=== PATIENT | female | born 1990 | race Caucasian/White ===

== ENCOUNTER 2016-08-04 17:36 | Inpatient (IN) | payer SELFPAY ==
[~2016-08-04] VITALS: Ht 162.6 cm; Wt 68.0 kg
[~2016-08-04 17:36] MED LIST: CITA10TA69 PO; IOHEXOL-300 100 ML BOTTLE ONE; NO MEDS; SODIUM CHLORIDE 0.9% 10ML VIAL ONE
[2016-08-04] MEDS ORDERED: MORPHINE SULFATE 4 MG/ML CPJ (NOT FOR IM USE) IV STA (18:44)
[2016-08-04] MEDS ORDERED: SODIUM CHLORIDE 0.9% 1,000 ML IV ONE (18:44)
[2016-08-04] MEDS ORDERED: ONDANSETRON HCL 4MG/2ML VIAL IV STA (18:44)
[2016-08-04 19:02] LABS: CHLORIDE 106 mEq/L (98-107)
[2016-08-04 19:03] LABS: INDEX HEMOLYSI 1 (1-3); INDEX ICTERIC 1 (1-4); INDEX LIPEMIC 1 (1-3)
[2016-08-04 19:06] LABS: INR 1.1; PARTIAL THROMBOPLASTIN TIME 24.8 sec (24.0-34.0); PROTHROMBIN TIME 11.3 sec
[2016-08-04 19:08] LABS: BASOPHILS % 0.5 % (0.0-2.0); EOSINOPHILS % 0.4 % (0.0-5.0); HEMATOCRIT. 38.4 % (36.0-48.0); HEMOGLOBIN. 12.9 g/dL (12.0-16.0); MEAN CORPUSCULAR HGB CONC 33.6 g/dL (31.0-37.0); MEAN CORPUSCULAR VOLUME 89.1 fL (81.0-99.0); MEAN PLATELET VOLUME 7.8 fl (7.4-10.4); MONOCYTES % 6.2 % (2.0-8.0); NEUTROPHILS % 62.9 % (40.0-76.0); PLATELET 260 x1000/uL (130-400); RED BLOOD CELL COUNT 4.31 mill/uL (4.2-5.4); WHITE BLOOD COUNT 10.9 x1000/uL (4.5-11.0)
[2016-08-04 19:10] LABS: ALANINE AMINOTRANSFERASE 35 IU/L (13-61); ALBUMIN 3.7 g/dL (3.4-5.0); ANION GAP 12; CALCIUM 9.1 mg/dL (8.5-10.1); CARBON DIOXIDE 25 mEq/L (21-32); LIPASE 240 IU/L (73-393); UREA NITROGEN BLOOD 13 mg/dL (7-21); eGFR > 60 mL/min (>60)
[2016-08-04 19:14] LABS: HCG SCREEN NEGATIVE
[2016-08-04 20:02] LABS: CLARITY URINE CLEAR (CLEAR); COLOR URINE YELLOW (YELLOW); GLUCOSE URINE NEGATIVE (NEGATIVE); KETONES URINE NEGATIVE (NEGATIVE); LEUKOCYTE ESTERASE URINE NEGATIVE (NEGATIVE); NITRITE URINE NEGATIVE (NEGATIVE); OCCULT BLOOD URINE 2+ (NEGATIVE); PH URINE 6.5 (4.5-8.0); PROTEIN URINE NEGATIVE (NEGATIVE); SPECIFIC GRAVITY URINE 1.008 (1.005-1.030); UROBILINOGEN URINE 0.2 E.U./dL (0.2-1.0)
[2016-08-04 20:36] LABS: SQUAMOUS EPITHELIAL CELL URINE FEW /lpf (RARE/1+)
[2016-08-04 20:37] LABS: RBC URINE 0-2 /hpf (0-2); WBC URINE 0-2 /hpf (0-2)
[2016-08-04 20:38] LABS: BACTERIA URINE 1+
[2016-08-04] MEDS ORDERED: MORPHINE SULFATE 4 MG/ML CPJ (NOT FOR IM USE) IV ONE (21:00)
[2016-08-04] MEDS ORDERED: DOXYCYCLINE 100 MG in DEXT 5% WATER 100 ML IV SCH (22:15)
[2016-08-04] MEDS ORDERED: CEFTRIAXONE SODIUM 250 MG/VIAL IM ONE (22:15)
[2016-08-04] MEDS ORDERED: GENTAMICIN 80MG PREMIX 100 ML IV ONE (22:15)
[2016-08-04] MEDS ORDERED: LIDOCAINE HCL 1% 20ML VIAL (Pyxis) INJ INFIL ONE (22:30)
[2016-08-04] MEDS ORDERED: GENTAMICIN SULFATE 80 MG in SODIUM CHLORIDE 0.9% 100 ML IV NR (22:36)
[2016-08-04] MEDS ORDERED: HYDROMORPHONE HCL/PF 2MG/ML CPJ IV ONE (23:00)
[2016-08-05 01:00] VITALS: BP 112/76
[2016-08-05] MEDS ORDERED: HYDROCODONE/ACETAMINOPHEN 5/325MG TABLET PO PRN (01:30)
[2016-08-05] MEDS ORDERED: ACETAMINOPHEN 325MG TABLET PO PRN (01:30)
[2016-08-05] MEDS: KETOROLAC 30MG/ML VIAL IV PRN ×2 (02:25→10:04)
[2016-08-05] MEDS: DEXT 5%/LACTATED RINGERS 1,000 ML IV SCH ×2 (02:48→10:06)
[2016-08-05 04:00] VITALS: BP 118/77
[2016-08-05 05:57] LABS: GLUCOSE URINE NEGATIVE (NEGATIVE); KETONES URINE 1+ (NEGATIVE); LEUKOCYTE ESTERASE URINE NEGATIVE (NEGATIVE); NITRITE URINE NEGATIVE (NEGATIVE); OCCULT BLOOD URINE TRACE (NEGATIVE); PROTEIN URINE NEGATIVE (NEGATIVE); SPECIFIC GRAVITY URINE 1.055 (1.005-1.030); UROBILINOGEN URINE 0.2 E.U./dL (0.2-1.0)
[2016-08-05 06:03] LABS: CLARITY URINE SL HAZY (CLEAR); COLOR URINE YELLOW (YELLOW)
[2016-08-05 06:44] LABS: BASOPHILS % 0.2 % (0.0-2.0); EOSINOPHILS % 0.1 % (0.0-5.0); HEMATOCRIT. 37.4 % (36.0-48.0); HEMOGLOBIN. 12.7 g/dL (12.0-16.0); LYMPHOCYTES % 17.9 % (20.0-50.0); MEAN CORPUSCULAR HEMOGLOBIN 30.8 pg (28.0-32.0); MEAN CORPUSCULAR VOLUME 90.5 fL (81.0-99.0); MONOCYTES % 4.1 % (2.0-8.0); NEUTROPHILS % 77.7 % (40.0-76.0); PLATELET 238 x1000/uL (130-400); RED BLOOD CELL COUNT 4.13 mill/uL (4.2-5.4); RED CELL DISTRIBUTION WIDTH 13.1 % (11.6-14.6); WHITE BLOOD COUNT 8.1 x1000/uL (4.5-11.0)
[2016-08-05 06:51] LABS: SQUAMOUS EPITHELIAL CELL URINE FEW /lpf (RARE/1+)
[2016-08-05 06:58] LABS: WBC URINE 0-2 /hpf (0-2)
[2016-08-05 06:59] LABS: BACTERIA URINE NONE SEEN; RBC URINE NONE SEEN /hpf (0-2)
[2016-08-05 07:59] VITALS: BP 108/66
[2016-08-05 13:23] VITALS: BP 95/59
[2016-08-05] MEDS: ONDANSETRON HCL 4MG/2ML VIAL IV PRN ×2 (13:27→18:50)
[2016-08-05 17:23] VITALS: BP 106/66
[2016-08-05 20:00] VITALS: BP 93/63
[2016-08-08 04:11] LABS: CHLAMYDIA TRACHOMATIS NAA Negative (Negative); NEISSERIA GONORRHOEAE NAA Negative (Negative)
== END 2016-08-05 21:00 | disposition home or self-care (01) | DRG 816 ==
LOC: ER 17:37 → 6WST 22:17
PROVIDERS: ADMIT Specialist; ATTEND Specialist
DX: T62.91XA Toxic effect of unspecified noxious substance eaten as food, accidental (unintentional), initial encounter (principal); N70.93 Salpingitis and oophoritis, unspecified; N83.209 Unspecified ovarian cyst, unspecified side; Z90.49 Acquired absence of other specified parts of digestive tract; Z87.442 Personal history of urinary calculi; Y92.89 Other specified places as the place of occurrence of the external cause
CPT/HCPCS: 36415; 71010; 74177; 76700; 76830; 76856; 80053; 81001; 83690; 84703; 85025; 85610; 85730; 87086; 87210; 87491; 87591; 93005; 96361; 96365; 96372; 96375; 96376; 99285; A4216; J0696; J1170; J1580; J1885; J2270; J2405; J3490; J7030; J7050; J7060; J7121; Q9967

== ENCOUNTER 2016-10-07 17:46 | Emergency (ER) | payer SELFPAY ==
[~2016-10-07] VITALS: Ht 167.6 cm; Wt 70.0 kg
[2016-10-07] MEDS ORDERED: MORPHINE SULFATE 4 MG/ML CPJ (NOT FOR IM USE) IV ONE ×2 (18:15→21:15)
[2016-10-07] MEDS ORDERED: SODIUM CHLORIDE 0.9% 1,000 ML IV ONE (18:15)
[2016-10-07] MEDS ORDERED: ONDANSETRON HCL 4MG/2ML VIAL IV ONE ×2 (18:15→21:15)
[2016-10-07 19:06] LABS: UCG SCREEN NEGATIVE
[2016-10-07 20:22] LABS: CLARITY URINE CLEAR (CLEAR); COLOR URINE YELLOW (YELLOW); GLUCOSE URINE NEGATIVE (NEGATIVE); KETONES URINE NEGATIVE (NEGATIVE); LEUKOCYTE ESTERASE URINE NEGATIVE (NEGATIVE); NITRITE URINE NEGATIVE (NEGATIVE); OCCULT BLOOD URINE NEGATIVE (NEGATIVE); PH URINE 8.5 (4.5-8.0); PROTEIN URINE NEGATIVE (NEGATIVE); SPECIFIC GRAVITY URINE 1.012 (1.005-1.030); UROBILINOGEN URINE 0.2 E.U./dL (0.2-1.0)
[2016-10-07 20:26] LABS: CHLORIDE 108 mEq/L (98-107)
[2016-10-07 20:28] LABS: BASOPHILS % 0.5 % (0.0-2.0); EOSINOPHILS % 1.6 % (0.0-5.0); HEMATOCRIT. 35.6 % (36.0-48.0); HEMOGLOBIN. 11.7 g/dL (12.0-16.0); LYMPHOCYTES % 27.5 % (20.0-50.0); MEAN CORPUSCULAR HEMOGLOBIN 29.6 pg (28.0-32.0); MEAN PLATELET VOLUME 7.5 fl (7.4-10.4); MONOCYTES % 8.1 % (2.0-8.0); NEUTROPHILS % 62.3 % (40.0-76.0); PLATELET 296 x1000/uL (130-400); RED BLOOD CELL COUNT 3.96 mill/uL (4.2-5.4); RED CELL DISTRIBUTION WIDTH 13.2 % (11.6-14.6)
[2016-10-07 20:29] LABS: CARBON DIOXIDE 27 mEq/L (21-32)
[2016-10-07 20:36] LABS: B-HCG QUANTITATIVE < 1 mIU/mL (<3)
[2016-10-07 22:21] VITALS: BP 121/78
== END 2016-10-07 22:23 | disposition home or self-care (01) ==
LOC: ER 18:06
DX: N83.201 Unspecified ovarian cyst, right side (principal)
CPT/HCPCS: 36415; 51702; 76830; 76856; 80048; 81003; 81025; 84702; 85025; 86850; 86900; 86901; 96361; 96374; 96375; 96376; 99285; J2270; J2405; J7030; Z7610; A4315

== ENCOUNTER 2022-09-09 15:54 | Emergency (ER) | payer MEDICAID ==
[~2022-09-09] VITALS: Ht 172.7 cm; Wt 86.0 kg
[2022-09-09] MEDS ORDERED: ACETAMINOPHEN 325MG TABLET PO ONE (16:15)
[2022-09-09] MEDS ORDERED: ACETAMINOPHEN 325MG TABLET PO NR (21:15)
[2022-09-09] MEDS ORDERED: HYDR-4001 MT (23:08)
[2022-09-09] MEDS ORDERED: TOPUD MT (23:10)
[2022-09-10 00:13] VITALS: BP 118/69
== END 2022-09-10 01:09 | disposition home or self-care (01) ==
LOC: ER 15:54
DX: M25.561 Pain in right knee (principal); G89.29 Other chronic pain; Z87.19 Personal history of other diseases of the digestive system
CPT/HCPCS: 73560; 99283

== ENCOUNTER 2024-09-22 13:44 | Emergency (ER) | payer MEDICAID ==
[~2024-09-22] VITALS: Ht 167.6 cm; Wt 73.0 kg
[~2024-09-22 13:44] MED LIST changes: -CITA10TA69 PO; -IOHEXOL-300 100 ML BOTTLE ONE; -NO MEDS; -SODIUM CHLORIDE 0.9% 10ML VIAL ONE; +TOPUD MT
[2024-09-22 14:05] VITALS: O2SAT 99
[2024-09-22] MEDS: MORPHINE SULFATE 4 MG/ML INJ (FOR IV/IM USE) IV STA (16:19)
[2024-09-22] MEDS: ONDANSETRON HCL 4MG/2ML INJ IV STA (16:19)
[2024-09-22] MEDS: KETOROLAC 15MG/ML VIAL IV ONE (16:20)
[2024-09-22] MEDS ORDERED: KETO10TA2 MT (17:30)
[2024-09-22 18:25] VITALS: BP 129/79; PULSE 88; RESP 18; TEMP 36.9; O2SAT 99
== END 2024-09-22 18:27 | disposition home or self-care (01) ==
LOC: ER 13:44
DX: M25.561 Pain in right knee (principal); Z98.890 Other specified postprocedural states; W01.0XXA Fall on same level from slipping, tripping and stumbling without subsequent striking against object, initial encounter; Y93.89 Activity, other specified; Y92.89 Other specified places as the place of occurrence of the external cause; Y99.8 Other external cause status
CPT/HCPCS: 73560; 29505; 96374; 96375; 99284; J2405; J2270; Z7610 ×2